=== PATIENT | male | born 1970 | race Caucasian/White ===

== ENCOUNTER 2016-12-04 17:30 | Emergency (ER) | payer SELFPAY ==
[~2016-12-04] VITALS: Ht 172.7 cm; Wt 100.0 kg
[2016-12-04 18:22] LABS: HEMATOCRIT 55.7 % (39.0-50.0); HEMOGLOBIN 18.2 g/dl (14.0-18.0); IMMATURE GRANULOCYTES 2.8 % (0.0-1.0); MEAN CELL VOLUME 85.7 fL CALC (80.0-100.0); MEAN CORPUSCULAR HGB CONC 32.7 g/L CALC (32.0-36.0); NEUT# 24.61 thou/uL (1.82-7.42); RED BLOOD COUNT 6.5 mill/uL (4.70-6.10); RED CELL DISTRI WIDTH 20.1 % (11.5-15.5)
[2016-12-04 18:33] LABS: ALBUMIN 4.5 g/dL (3.2-5.0); ALKALINE PHOSPHATASE 93 u/l (38-126); ANION GAP 13 (6-22 (CALC)); BILIRUBIN, TOTAL 0.9 mg/dL (0.0-1.4); BUN 28 mg/dL (9-20); BUN/CREATININE RATIO 31 (12-20 (CALC)); CALCIUM 9.7 mg/dL (8.4-10.2); CARBON DIOXIDE 37 mmol/l (22-30); CHLORIDE 94 mmol/l (95-108); CREATININE 0.9 mg/dL (0.7-1.3); GFR > 60 ML/MIN (>=60 (CALC)); GFR FOR AFR.AMER. > 60 ML/MIN (>=60 (CALC)); GLUCOSE 109 mg/dL (75-110); POTASSIUM 3.6 mmol/l (3.5-5.1); SGOT/AST 49 u/l (17-59); SGPT/ALT 45 u/l (21-72); SODIUM 140 mmol/l (137-146); TOTAL PROTEIN 8.1 g/dL (6.3-8.2)
[2016-12-04 18:45] LABS: MYOGLOBIN 65 ng/mL (0 - 121)
[2016-12-04] MEDS ORDERED: VENTOLIN H108 MCG/AC IN (19:16)
[2016-12-04] MEDS ORDERED: DIGOX250 MCG PO (19:18)
[2016-12-04] MEDS ORDERED: GABAPENTIN400 M2 PO (19:18)
[2016-12-04] MEDS ORDERED: DILTIAZEM HCL300 MG PO (19:19)
[2016-12-04] MEDS ORDERED: CARVEDILOL12.5 MG PO (19:19)
[2016-12-04] MEDS ORDERED: XARELTO20 MG PO (19:20)
[2016-12-04] MEDS ORDERED: PANTOPRAZOLE SO40 M1 PO (19:20)
[2016-12-04] MEDS ORDERED: ALDACTAZIDE 25/25 PO (19:21)
[2016-12-04] MEDS ORDERED: LISINOPRIL40 MG PO (19:21)
[2016-12-04 21:58] LABS: URINE BILIRUBIN - DIPSTICK NEGATIVE (NEGATIVE); URINE BLOOD DIPSTICK TRACE-INTACT (NEGATIVE); URINE CLARITY CLEAR; URINE COLOR YELLOW; URINE GLUCOSE - DIPSTICK NEGATIVE (NEGATIVE); URINE KETONE NEGATIVE (NEGATIVE); URINE LEUK ESTERASE NEGATIVE (NEGATIVE); URINE NITRITE - DIPSTICK NEGATIVE (Negative); URINE PROTEIN - DIPSTICK NEGATIVE (NEG-TRACE); URINE SPECIFIC GRAVITY 1.025; URINE UROBILINOGEN - DIPSTICK 0.2 E.U./dL (0.2)
[2016-12-04] MEDS ORDERED: PERCOCET 5/325M1 TAB PO (23:23)
[2016-12-04] MEDS ORDERED: XANAX0.5 MG PO (23:23)
[2016-12-04 23:58] VITALS: BP 133/85
== END 2016-12-04 23:35 | disposition home or self-care (01) | DRG 313 ==
LOC: ED 17:30
PROVIDERS: Emergency Medicine
DX: R07.89 Other chest pain (principal); I10 Essential (primary) hypertension; G89.29 Other chronic pain; M54.9 Dorsalgia, unspecified; F41.9 Anxiety disorder, unspecified; R10.31 Right lower quadrant pain; F17.200 Nicotine dependence, unspecified, uncomplicated; J44.9 Chronic obstructive pulmonary disease, unspecified

== ENCOUNTER 2016-12-10 04:49 | Inpatient (IN) | payer SELFPAY ==
[~2016-12-10] VITALS: Ht 172.7 cm; Wt 123.0 kg
[~2016-12-10 04:49] MED LIST: ALDACTAZIDE 25/25 PO; CARVEDILOL12.5 MG PO; DIGOX250 MCG PO; DILTIAZEM HCL300 MG PO; GABAPENTIN400 M2 PO; LISINOPRIL40 MG PO; PANTOPRAZOLE SO40 M1 PO; PERCOCET 5/325M1 TAB PO; VENTOLIN H108 MCG/AC IN; XANAX0.5 MG PO; XARELTO20 MG PO
[2016-12-10 05:22] LABS: ALBUMIN 3.6 g/dL (3.2-5.0); ALKALINE PHOSPHATASE 80 u/l (38-126); ANION GAP 12 (6-22 (CALC)); BILIRUBIN, TOTAL 0.9 mg/dL (0.0-1.4); BUN 16 mg/dL (9-20); BUN/CREATININE RATIO 21 (12-20 (CALC)); CALCIUM 8.9 mg/dL (8.4-10.2); CARBON DIOXIDE 28 mmol/l (22-30); CHLORIDE 105 mmol/l (95-108); CREATININE 0.7 mg/dL (0.7-1.3); GFR > 60 ML/MIN (>=60 (CALC)); GFR FOR AFR.AMER. > 60 ML/MIN (>=60 (CALC)); GLUCOSE 106 mg/dL (75-110); POTASSIUM 4.2 mmol/l (3.5-5.1); SGOT/AST 26 u/l (17-59); SGPT/ALT 33 u/l (21-72); SODIUM 141 mmol/l (137-146); TOTAL PROTEIN 6.4 g/dL (6.3-8.2)
[2016-12-10 05:25] LABS: HEMATOCRIT 42.1 % (39.0-50.0); HEMOGLOBIN 13.7 g/dl (14.0-18.0); IMMATURE GRANULOCYTES 0.9 % (0.0-1.0); MEAN CELL VOLUME 88.1 fL CALC (80.0-100.0); MEAN CORPUSCULAR HGB 28.7 pG CALC (26.0-32.0); MEAN CORPUSCULAR HGB CONC 32.5 g/L CALC (32.0-36.0); NEUT# 18.76 thou/uL (1.82-7.42); RED BLOOD COUNT 4.78 mill/uL (4.70-6.10); RED CELL DISTRI WIDTH 19.9 % (11.5-15.5)
[2016-12-10 05:26] LABS: ACT PARTIAL THROMBO TIME 33.4 SECONDS (20.0-32.5); INTERNATIONAL NORMALIZED RATIO 1.1 RATIO (0.7-1.3)
[2016-12-10 05:35] LABS: DIGOXIN 0.7 ng/mL (0.8-2.0); MYOGLOBIN 33 ng/mL (0 - 121)
[2016-12-10 06:26] LABS: URINE BILIRUBIN - DIPSTICK NEGATIVE (NEGATIVE); URINE BLOOD DIPSTICK NEGATIVE (NEGATIVE); URINE CLARITY CLEAR; URINE COLOR YELLOW; URINE GLUCOSE - DIPSTICK NEGATIVE (NEGATIVE); URINE KETONE NEGATIVE (NEGATIVE); URINE LEUK ESTERASE NEGATIVE (NEGATIVE); URINE NITRITE - DIPSTICK NEGATIVE (Negative); URINE PH 6.5 (4.5-8.0); URINE PROTEIN - DIPSTICK NEGATIVE (NEG-TRACE); URINE UROBILINOGEN - DIPSTICK 0.2 E.U./dL (0.2)
[2016-12-10 06:32] LABS: BARBITURATES NEGATIVE (NEGATIVE); COCAINE NEGATIVE (NEGATIVE); METHADONE NEGATIVE (NEGATIVE); OXCYCODONE NEGATIVE (NEGATIVE); TETRAHYDROCANNABIONOL NEGATIVE (NEGATIVE); TRICYLIC ANTIDEPRESSANTS NEGATIVE (NEGATIVE)
[2016-12-10 07:42] VITALS: BP 165/105
[2016-12-10 09:37] VITALS: BP 138/88
[2016-12-10] MEDS ORDERED: XANAX0.5 MG PO ×2 (11:35→11:36)
[2016-12-10] MEDS ORDERED: PERCOCET 5/325M1 TAB PO ×2 (11:35→11:37)
[2016-12-10] MEDS ORDERED: OMEPRAZOLE20 M2 PO (11:38)
[2016-12-10] MEDS ORDERED: CARVEDILOL25 MG PO (11:39)
[2016-12-10] MEDS ORDERED: AMLODIPINE5 MG PO (11:41)
[2016-12-10] MEDS ORDERED: LIPITOR40 M1 PO (11:42)
[2016-12-10] MEDS ORDERED: ASPIRIN81 MG PO (11:42)
[2016-12-10] MEDS ORDERED: DOCU SOFT100 MG PO (11:43)
[2016-12-10] MEDS ORDERED: CHLORTHALIDONE25 MG PO (11:43)
[2016-12-10] MEDS ORDERED: LORAZEPAM0.5 MG PO (11:44)
[2016-12-10] MEDS ORDERED: FERROUS SULF325 M2 PO (11:44)
[2016-12-10] MEDS ORDERED: REMERON15 MG PO (11:45)
[2016-12-10] MEDS ORDERED: MELOXICAM7.5 MG PO (11:45)
[2016-12-10] MEDS ORDERED: DULERA1 AE1 IN (11:46)
[2016-12-10 12:00] VITALS: BP 132/81
[2016-12-10 16:46] VITALS: BP 117/67
[2016-12-10 18:00] VITALS: BP 129/87
[2016-12-10 23:58] VITALS: BP 142/91
[2016-12-11 05:55] LABS: HEMATOCRIT 42.2 % (39.0-50.0); HEMOGLOBIN 13.4 g/dl (14.0-18.0); MEAN CELL VOLUME 88.3 fL CALC (80.0-100.0); MEAN CORPUSCULAR HGB CONC 31.8 g/L CALC (32.0-36.0); RED BLOOD COUNT 4.78 mill/uL (4.70-6.10); RED CELL DISTRI WIDTH 19.8 % (11.5-15.5)
[2016-12-11 06:14] LABS: ANION GAP 11 (6-22 (CALC)); BUN 15 mg/dL (9-20); BUN/CREATININE RATIO 19 (12-20 (CALC)); CALCIUM 8.7 mg/dL (8.4-10.2); CARBON DIOXIDE 27 mmol/l (22-30); CHLORIDE 106 mmol/l (95-108); CREATININE 0.8 mg/dL (0.7-1.3); GFR > 60 ML/MIN (>=60 (CALC)); GFR FOR AFR.AMER. > 60 ML/MIN (>=60 (CALC)); GLUCOSE 94 mg/dL (75-110); POTASSIUM 4.4 mmol/l (3.5-5.1); SODIUM 139 mmol/l (137-146)
[2016-12-11 06:22] VITALS: BP 134/85
[2016-12-11 07:50] VITALS: BP 146/100
[2016-12-11 08:23] LABS: CHOLESTEROL HDL RATIO 4.2 (<4.4 (CALC))
[2016-12-11 11:27] VITALS: BP 127/89
[2016-12-11] MEDS ORDERED: IPRATROPIU0.5 MG/3 M IN (13:58)
[2016-12-11] MEDS ORDERED: DOXYCYCL HYC100 MG PO (13:58)
[2016-12-11] MEDS ORDERED: BACLOFEN10 MG PO (13:58)
[2016-12-11] MEDS ORDERED: KEFLEX500 MG PO (13:58)
[2016-12-11] MEDS ORDERED: FLORASTOR250 M1 PO (14:01)
== END 2016-12-11 15:43 | disposition home or self-care (01) | DRG 190 ==
LOC: ED 04:49 → ED-I 05:56 → ED 05:56 → MS2 06:04
PROVIDERS: Emergency Medicine; Nurse Practitioner Family; ADMIT Internal Medicine; ATTEND Internal Medicine
DX: J44.0 Chronic obstructive pulmonary disease with (acute) lower respiratory infection (principal); J18.9 Pneumonia, unspecified organism; I11.0 Hypertensive heart disease with heart failure; I50.32 Chronic diastolic (congestive) heart failure; G89.4 Chronic pain syndrome; I25.10 Atherosclerotic heart disease of native coronary artery without angina pectoris; E78.5 Hyperlipidemia, unspecified; K21.9 Gastro-esophageal reflux disease without esophagitis; F15.11 Other stimulant abuse, in remission; Z79.01 Long term (current) use of anticoagulants; Z87.891 Personal history of nicotine dependence

== ENCOUNTER 2016-12-12 19:37 | Emergency (ER) | payer SELFPAY ==
[~2016-12-12] VITALS: Ht 172.7 cm; Wt 122.8 kg
[~2016-12-12 19:37] MED LIST changes: +AMLODIPINE5 MG PO; +ASPIRIN81 MG PO; +BACLOFEN10 MG PO; +CARVEDILOL25 MG PO; +CHLORTHALIDONE25 MG PO; +DOCU SOFT100 MG PO; +DOXYCYCL HYC100 MG PO; +DULERA1 AE1 IN; +FERROUS SULF325 M2 PO; +FLORASTOR250 M1 PO; +IPRATROPIU0.5 MG/3 M IN; +KEFLEX500 MG PO; +LIPITOR40 M1 PO; +LORAZEPAM0.5 MG PO; +MELOXICAM7.5 MG PO; +OMEPRAZOLE20 M2 PO; +REMERON15 MG PO
[2016-12-12 21:43] LABS: IMMATURE GRANULOCYTES 0.7 % (0.0-1.0); MEAN CELL VOLUME 87.3 fL CALC (80.0-100.0); MEAN CORPUSCULAR HGB 28.5 pG CALC (26.0-32.0); MEAN CORPUSCULAR HGB CONC 32.6 g/L CALC (32.0-36.0); NEUT# 15.06 thou/uL (1.82-7.42); RED BLOOD COUNT 5.27 mill/uL (4.70-6.10); RED CELL DISTRI WIDTH 19.7 % (11.5-15.5)
[2016-12-12 21:53] LABS: ALKALINE PHOSPHATASE 92 u/l (38-126); ANION GAP 15 (6-22 (CALC)); BUN 14 mg/dL (9-20); BUN/CREATININE RATIO 20 (12-20 (CALC)); CALCIUM 9.7 mg/dL (8.4-10.2); CARBON DIOXIDE 25 mmol/l (22-30); CHLORIDE 107 mmol/l (95-108); CREATININE 0.7 mg/dL (0.7-1.3); GFR > 60 ML/MIN (>=60 (CALC)); GFR FOR AFR.AMER. > 60 ML/MIN (>=60 (CALC)); GLUCOSE 85 mg/dL (75-110); POTASSIUM 4.8 mmol/l (3.5-5.1); SGOT/AST 27 u/l (17-59); SGPT/ALT 29 u/l (21-72); SODIUM 143 mmol/l (137-146); TOTAL PROTEIN 7.1 g/dL (6.3-8.2)
[2016-12-12 22:00] LABS: ACT PARTIAL THROMBO TIME 25.9 SECONDS (20.0-32.5); INTERNATIONAL NORMALIZED RATIO 1.1 RATIO (0.7-1.3)
[2016-12-12 22:06] LABS: MYOGLOBIN 30 ng/mL (0 - 121)
[2016-12-12 22:52] LABS: URINE BILIRUBIN - DIPSTICK NEGATIVE (NEGATIVE); URINE BLOOD DIPSTICK NEGATIVE (NEGATIVE); URINE COLOR YELLOW; URINE GLUCOSE - DIPSTICK NEGATIVE (NEGATIVE); URINE KETONE NEGATIVE (NEGATIVE); URINE LEUK ESTERASE NEGATIVE (NEGATIVE); URINE NITRITE - DIPSTICK NEGATIVE (Negative); URINE PROTEIN - DIPSTICK NEGATIVE (NEG-TRACE); URINE SPECIFIC GRAVITY 1.015; URINE UROBILINOGEN - DIPSTICK 0.2 E.U./dL (0.2)
[2016-12-12 22:54] LABS: URINE CLARITY CLEAR
[2016-12-13 01:08] VITALS: BP 190/107
== END 2016-12-13 01:20 | disposition short-term general hospital (02) | DRG 194 ==
LOC: ED 19:37
PROVIDERS: Emergency Medicine
DX: J18.9 Pneumonia, unspecified organism (principal); J91.8 Pleural effusion in other conditions classified elsewhere; I50.9 Heart failure, unspecified; I48.91 Unspecified atrial fibrillation; R07.9 Chest pain, unspecified; I10 Essential (primary) hypertension; R06.02 Shortness of breath
CPT/HCPCS: Q9967

== ENCOUNTER 2016-12-29 17:06 | Emergency (ER) | payer MEDICAID ==
[~2016-12-29] VITALS: Ht 172.7 cm; Wt 98.6 kg
[2016-12-29] MEDS ORDERED: VENTOLIN H108 MCG/AC (17:45)
[2016-12-29] MEDS ORDERED: ALBUTEROL SUL0.083 % IN (17:45)
[2016-12-29] MEDS ORDERED: GABAPENTIN400 M2 PO (17:46)
[2016-12-29] MEDS ORDERED: DIGOX250 MCG (17:47)
[2016-12-29 17:56] LABS: HEMOGLOBIN 17.6 g/dl (14.0-18.0); IMMATURE GRANULOCYTES 1.4 % (0.0-1.0); MEAN CORPUSCULAR HGB 28.6 pG CALC (26.0-32.0); MEAN CORPUSCULAR HGB CONC 33.2 g/L CALC (32.0-36.0); NEUT# 17.88 thou/uL (1.82-7.42); RED BLOOD COUNT 6.16 mill/uL (4.70-6.10); RED CELL DISTRI WIDTH 19.7 % (11.5-15.5)
[2016-12-29 18:25] LABS: ANION GAP 17 (6-22 (CALC)); BUN 26 mg/dL (9-20); BUN/CREATININE RATIO 23 (12-20 (CALC)); CALCIUM 10.4 mg/dL (8.4-10.2); CARBON DIOXIDE 28 mmol/l (22-30); CHLORIDE 99 mmol/l (95-108); CREATININE 1.1 mg/dL (0.7-1.3); GFR > 60 ML/MIN (>=60 (CALC)); GFR FOR AFR.AMER. > 60 ML/MIN (>=60 (CALC)); GLUCOSE 109 mg/dL (75-110); POTASSIUM 5.1 mmol/l (3.5-5.1); SODIUM 139 mmol/l (137-146)
[2016-12-29 18:49] LABS: ALKALINE PHOSPHATASE 114 u/l (38-126); BILIRUBIN, TOTAL 1.1 mg/dL (0.0-1.4); DIGOXIN 0.8 ng/mL (0.8-2.0); SGOT/AST 60 u/l (17-59); SGPT/ALT 26 u/l (21-72); TOTAL PROTEIN 8.9 g/dL (6.3-8.2)
[2016-12-29 22:13] VITALS: BP 142/74
== END 2016-12-29 22:17 | disposition short-term general hospital (02) | DRG 313 ==
LOC: ED 17:06 → ED-I 17:48 → ED 22:17
PROVIDERS: Family Medicine
DX: R07.9 Chest pain, unspecified (principal); I50.9 Heart failure, unspecified; I48.91 Unspecified atrial fibrillation; R05 Cough; Z92.241 Personal history of systemic steroid therapy; I10 Essential (primary) hypertension; J44.9 Chronic obstructive pulmonary disease, unspecified; M79.602 Pain in left arm; M54.2 Cervicalgia

== ENCOUNTER 2017-03-20 19:20 | Observation (INO) | payer OTHER ==
[~2017-03-20] VITALS: Ht 172.7 cm; Wt 121.2 kg
[~2017-03-20 19:20] MED LIST changes: +ALBUTEROL SUL0.083 % IN; +DIGOX250 MCG; +VENTOLIN H108 MCG/AC
[2017-03-20] MEDS ORDERED: DIGOXIN0.125 MG PO (19:41)
[2017-03-20] MEDS ORDERED: PROTONIX40 M2 PO (19:42)
[2017-03-20] MEDS ORDERED: CARTIA XT300 MG PO (19:42)
[2017-03-20] MEDS ORDERED: SPIRONO/HCTZ PO (19:43)
[2017-03-20] MEDS ORDERED: COREG6.25 MG PO (19:44)
[2017-03-20] MEDS ORDERED: ALBUTEROL SUL0.083 % IN (19:44)
[2017-03-20] MEDS ORDERED: PROAIR HFA108 MCG/AC IN (19:45)
[2017-03-20] MEDS ORDERED: SUBOXONE1 MI1 SL (19:45)
--- NOTE | 2017-03-20 19:52 | NUR ---
AFTER PREVIOUSLY TELLING TRIAGE NURSE THAT HE TOOK ALL HIS MEDS TODAY, NOW STATES THAT HE HAS NOT TAKEN HIS SUBOXONE FOR 3 DAYS.
[2017-03-20 20:12] LABS: HEMATOCRIT 50.2 % (39.0-50.0); HEMOGLOBIN 16.3 g/dl (14.0-18.0); IMMATURE GRANULOCYTES 0.8 % (0.0-1.0); MEAN CELL VOLUME 86.7 fL CALC (80.0-100.0); MEAN CORPUSCULAR HGB 28.2 pG CALC (26.0-32.0); MEAN CORPUSCULAR HGB CONC 32.5 g/L CALC (32.0-36.0); NEUT# 16.07 thou/uL (1.82-7.42); RED BLOOD COUNT 5.79 mill/uL (4.70-6.10); RED CELL DISTRI WIDTH 19.3 % (11.5-15.5)
[2017-03-20 20:31] LABS: ACT PARTIAL THROMBO TIME 27.6 SECONDS (20.0-32.5); PROTHROMBIN TIME 11.1 SECONDS (9.0-12.5)
[2017-03-20 20:34] LABS: ALBUMIN 4.6 g/dL (3.2-5.0); ALKALINE PHOSPHATASE 105 u/l (38-126); ANION GAP 18 (6-22 (CALC)); BILIRUBIN, TOTAL 0.5 mg/dL (0.0-1.4); BUN 22 mg/dL (9-20); BUN/CREATININE RATIO 21 (12-20 (CALC)); CARBON DIOXIDE 23 mmol/l (22-30); CHLORIDE 105 mmol/l (95-108); CREATININE 1.1 mg/dL (0.7-1.3); GFR > 60 ML/MIN (>=60 (CALC)); GFR FOR AFR.AMER. > 60 ML/MIN (>=60 (CALC)); POTASSIUM 4.4 mmol/l (3.5-5.1); SGOT/AST 46 u/l (17-59); SGPT/ALT 67 u/l (21-72); SODIUM 142 mmol/l (137-146); TOTAL PROTEIN 7.8 g/dL (6.3-8.2)
[2017-03-20 20:45] LABS: MYOGLOBIN 32 ng/mL (0 - 121)
--- NOTE | 2017-03-20 20:49 | NUR ---
C/O CHEST PAIN 10/15. ADVISED.
[2017-03-20 20:57] LABS: INFLUENZA A NONE DETECTED (NONE DETECT); INFLUENZA B NONE DETECTED (NONE DETECT)
--- NOTE | 2017-03-20 21:38 | NUR ---
RESTING QUIETLY AT THIS TIME.
[2017-03-20 22:20] LABS: URINE BILIRUBIN - DIPSTICK NEGATIVE (NEGATIVE); URINE BLOOD DIPSTICK NEGATIVE (NEGATIVE); URINE COLOR YELLOW; URINE GLUCOSE - DIPSTICK NEGATIVE (NEGATIVE); URINE KETONE NEGATIVE (NEGATIVE); URINE LEUK ESTERASE NEGATIVE (NEGATIVE); URINE NITRITE - DIPSTICK NEGATIVE (Negative); URINE PROTEIN - DIPSTICK NEGATIVE (NEG-TRACE); URINE SPECIFIC GRAVITY >=1.030; URINE UROBILINOGEN - DIPSTICK 0.2 E.U./dL (0.2)
[2017-03-20 22:22] LABS: URINE CLARITY CLEAR
[2017-03-20 22:23] LABS: BARBITURATES NEGATIVE (NEGATIVE); COCAINE NEGATIVE (NEGATIVE); METHADONE NEGATIVE (NEGATIVE); OXCYCODONE NEGATIVE (NEGATIVE); TETRAHYDROCANNABIONOL NEGATIVE (NEGATIVE); TRICYLIC ANTIDEPRESSANTS NEGATIVE (NEGATIVE)
--- NOTE | 2017-03-20 22:28 | NUR ---
Admission Note Report Given to: MERCED WATT Transported by: Wheelchair X Stretcher Transported with: X Nurse Transporter X Patent IV O2 Joint Machine Operator
--- NOTE | 2017-03-20 22:45 | NUR ---
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
[2017-03-20 22:57] VITALS: BP 186/97
--- NOTE | 2017-03-20 23:50 | NUR ---
CLONIDINE 0.1MG PO GIVEN FOR ELEVATED BP 186/97 AND PRN TORADOL 15MG IVP GIVEN FOR MID STERNAL CHEST PAIN RATING 9/10 ON THE PAIN SCALE;WILL MONTIOR FOR EFFECTIVENESS
--- NOTE | 2017-03-21 00:40 | NUR ---
BP RE-CHECK 141/79 HR 82;PT SOUND ASLEEP UPON ENTERING THE ROOM,WAKENS TO VERBAL STIMULI;PT REPORTS PAIN LEVEL TO CHEST 8/10 ON THE PAIN SCALE BUT DENIES ANY OTHER NEEDS AT THIS TIME;WILL CONTINUE TO MONITOR
[2017-03-21 04:26] VITALS: BP 128/80
--- NOTE | 2017-03-21 06:00 | NUR ---
PT APPEARS TO BE RESTING IN SUPINE POSITION;LAB AT BEDSIDE;TELE MONITOR IN PLACE;RESPIRATIONS EVEN AND UNLABORED;WILL CONTINUE TO MONITOR
[2017-03-21 06:58] LABS: HEMATOCRIT 48.4 % (39.0-50.0); HEMOGLOBIN 15.5 g/dl (14.0-18.0); IMMATURE GRANULOCYTES 0.9 % (0.0-1.0); MEAN CELL VOLUME 86.4 fL CALC (80.0-100.0); MEAN CORPUSCULAR HGB 27.7 pG CALC (26.0-32.0); NEUT# 12.51 thou/uL (1.82-7.42); RED BLOOD COUNT 5.6 mill/uL (4.70-6.10); RED CELL DISTRI WIDTH 19.2 % (11.5-15.5)
--- NOTE | 2017-03-21 07:15 | NUR ---
REPORT RECEVIED FROM QUINTIN WATT. PT SUPINE IN BED. SLEEPING. CALL LIGHT WITHIN REACH.
[2017-03-21 07:18] LABS: ANION GAP 16 (6-22 (CALC)); BUN 25 mg/dL (9-20); BUN/CREATININE RATIO 27 (12-20 (CALC)); CALCULATED LDLCHOLESTEROL 88 mg/dL (62-129 (CALC)); CARBON DIOXIDE 25 mmol/l (22-30); CHLORIDE 104 mmol/l (95-108); CHOLESTEROL HDL RATIO 3.5 (<4.4 (CALC)); CREATININE 0.9 mg/dL (0.7-1.3); GFR > 60 ML/MIN (>=60 (CALC)); GFR FOR AFR.AMER. > 60 ML/MIN (>=60 (CALC)); HDL CHOLESTEROL 43 mg/dL (>=40); MAGNESIUM 1.9 mg/dL (1.6-2.3); POTASSIUM 4.3 mmol/l (3.5-5.1); SODIUM 141 mmol/l (137-146); TOTAL CHOLESTEROL 148 mg/dl (0-199); TOTAL TRIGLYCERIDES 88 mg/dl (30-149); VLDL CHOLESTROL 18 mg/dl (5-56 (CALC))
--- NOTE | 2017-03-21 10:30 | NUR ---
PT AWAKENED. REPORTS MODERATE MIDSTERNAL, SHARP PAIN. VILMA AGUILERA NOTIFIED. GI COCKTAIL AND PROTONIX ORDERED.
[2017-03-21 10:55] VITALS: BP 145/80
--- NOTE | 2017-03-21 12:37 | NUR ---
PT REPORTS NO RELIEF FROM GI COCKTAIL AND PROTONIX PO. TORADOL IV ADMINSITERED. WILL CONTINUE TO MONITOR.
[2017-03-21 13:04] VITALS: BP 145/80
[2017-03-21] MEDS ORDERED: CARAFATE1 GM/10 ML PO (13:07)
--- NOTE | 2017-03-21 14:07 | NUR ---
DR. SOUZA IN TO SEE PT. DISCHARGE HOME DISCUSSED. AWAITING DOSE OF CARAFTE FROM PHARMACY BEFORE DISCHARGE.
--- NOTE | 2017-03-21 15:13 | NUR ---
Discharge instructions given. Patient verbalizes understanding of same. Discharged in stable condition via Ambulatory to Home with *Other. All belongings sent with pt.
== END 2017-03-21 15:00 | disposition home or self-care (01) | DRG 313 ==
LOC: ED 19:20 → ED-I 21:20 → ED 21:52 → MS2 21:53
PROVIDERS: Emergency Medicine; Nurse Practitioner Family; ADMIT Internal Medicine; ATTEND Internal Medicine
DX: R07.89 Other chest pain (principal); I11.0 Hypertensive heart disease with heart failure; I50.30 Unspecified diastolic (congestive) heart failure; D72.829 Elevated white blood cell count, unspecified; E78.5 Hyperlipidemia, unspecified; J44.9 Chronic obstructive pulmonary disease, unspecified; K21.9 Gastro-esophageal reflux disease without esophagitis; Z87.01 Personal history of pneumonia (recurrent); Z87.891 Personal history of nicotine dependence
CPT/HCPCS: G0378

== ENCOUNTER 2017-05-14 15:41 | Emergency (ER) | payer OTHER ==
[~2017-05-14] VITALS: Ht 172.7 cm; Wt 118.0 kg
[~2017-05-14 15:41] MED LIST changes: +CARAFATE1 GM/10 ML PO; +CARTIA XT300 MG PO; +COREG6.25 MG PO; +DIGOXIN0.125 MG PO; +PROAIR HFA108 MCG/AC IN; +PROTONIX40 M2 PO; +SPIRONO/HCTZ PO; +SUBOXONE1 MI1 SL
[2017-05-14] MEDS ORDERED: ALBUTEROL SUL0.083 % IN (16:41)
[2017-05-14 16:44] VITALS: BP 157/84
== END 2017-05-14 17:35 | disposition home or self-care (01) | DRG 951 ==
LOC: ED 15:41
DX: Z76.0 Encounter for issue of repeat prescription (principal); J44.1 Chronic obstructive pulmonary disease with (acute) exacerbation; I11.9 Hypertensive heart disease without heart failure; F32.9 Major depressive disorder, single episode, unspecified; M19.90 Unspecified osteoarthritis, unspecified site; Z85.9 Personal history of malignant neoplasm, unspecified

== ENCOUNTER 2017-09-26 11:13 | Observation (INO) | payer OTHER ==
[~2017-09-26] VITALS: Ht 172.7 cm; Wt 126.0 kg
--- NOTE | 2017-09-26 11:20 | NUR ---
PT STATES SHORTNESS OF BREATH FOR 1 WEEK, STATES SWELLING IN LEGS HAS INCREASED. PT STATES C/P WITH SOB. PT IS AOX4.
[2017-09-26] MEDS ORDERED: ADLT ASA LOW81 MG PO (11:31)
[2017-09-26] MEDS ORDERED: NEURONTIN400 MG PO (11:32)
[2017-09-26] MEDS ORDERED: DULERA1 AE1 IN (11:33)
[2017-09-26 12:05] LABS: HEMATOCRIT 43.5 % (39.0-50.0); IMMATURE GRANULOCYTES 0.7 % (0.0-5.0); MEAN CORPUSCULAR HGB 28.6 pG CALC (26.0-32.0); MEAN CORPUSCULAR HGB CONC 32.2 g/L CALC (32.0-36.0); RED BLOOD COUNT 4.89 mill/uL (4.70-6.10); RED CELL DISTRI WIDTH 18.8 % (11.5-15.5)
[2017-09-26 12:10] LABS: ALBUMIN 3.9 g/dL (3.2-5.0); ALKALINE PHOSPHATASE 89 u/l (38-126); ANION GAP 14 (6-22 (CALC)); BILIRUBIN, TOTAL 0.6 mg/dL (0.0-1.4); BUN 17 mg/dL (9-20); BUN/CREATININE RATIO 23 (12-20 (CALC)); CARBON DIOXIDE 27 mmol/l (22-30); CHLORIDE 103 mmol/l (95-108); CREATININE 0.7 mg/dL (0.7-1.3); GFR > 60 ML/MIN (>=60 (CALC)); GFR FOR AFR.AMER. > 60 ML/MIN (>=60 (CALC)); POTASSIUM 4.2 mmol/l (3.5-5.1); SGOT/AST 35 u/l (17-59); SGPT/ALT 42 u/l (21-72); SODIUM 140 mmol/l (137-146)
--- NOTE | 2017-09-26 12:20 | NUR ---
PT RESTING ON STRETCHER, URINALS AT BEDSIDE. STATES PAIN IS ABOUT THE SAME
[2017-09-26 12:22] LABS: MYOGLOBIN 62 ng/mL (0 - 121)
--- NOTE | 2017-09-26 12:40 | NUR ---
EMPTIED URINALS OF 1500CC CLEAR YELLOW URINE AT THIS TIME.
[2017-09-26 13:03] LABS: URINE BILIRUBIN - DIPSTICK NEGATIVE (NEGATIVE); URINE BLOOD DIPSTICK NEGATIVE (NEGATIVE); URINE COLOR YELLOW; URINE GLUCOSE - DIPSTICK NEGATIVE (NEGATIVE); URINE KETONE NEGATIVE (NEGATIVE); URINE LEUK ESTERASE NEGATIVE (NEGATIVE); URINE NITRITE - DIPSTICK NEGATIVE (Negative); URINE PH 6.5 (4.5-8.0); URINE PROTEIN - DIPSTICK NEGATIVE (NEG-TRACE); URINE SPECIFIC GRAVITY <=1.005; URINE UROBILINOGEN - DIPSTICK 0.2 E.U./dL (0.2)
[2017-09-26 13:04] LABS: URINE CLARITY CLEAR
[2017-09-26 13:06] LABS: BARBITURATES NEGATIVE (NEGATIVE); COCAINE NEGATIVE (NEGATIVE); METHADONE NEGATIVE (NEGATIVE); OXCYCODONE NEGATIVE (NEGATIVE); TETRAHYDROCANNABIONOL NEGATIVE (NEGATIVE); TRICYLIC ANTIDEPRESSANTS NEGATIVE (NEGATIVE)
--- NOTE | 2017-09-26 13:41 | NUR ---
DUMPED URINE OF 1500CC CLEAR YELLOW URINE
--- NOTE | 2017-09-26 14:30 | NUR ---
PT GIVEN WATER AND SNACKS. PT RESTING ON STRETCHER, NO COMPLAINTS AT THIS TIME.
--- NOTE | 2017-09-26 14:44 | NUR ---
REPORT CALLED TO SHUKRI RIBEIRO- ACCEPTED PT
--- NOTE | 2017-09-26 14:50 | NUR ---
500 ML OF URINE EMPTIED
--- NOTE | 2017-09-26 15:02 | NUR ---
PT ARRIVED TO FLOOR VIA STRETCHER ACCOMPANIED BY MERCED LEON;PT AMBULATED TO STANDING SCALE AND BEDSIDE WITH STEADY GAIT;ALERT AND ORIENTED X4;PT ORIENTED TO ROOM AND CALL LIGHT SYSTEM AND VERBALIZES UNDERSTANDING;PT REPORTS SOB X7 DAYS PRIOR TO ARRIVAL;ASSESSMENT COMPLETED;RESPIRATIONS EVEN AND UNLABORED ON RA,DIMINISHED LUNGS SOUNDS THROUGHOUT WITH OCCASIONAL WHEEZING;PT REPORTS PRODUCTIVE COUGH GREEN/THICK AND MODERATE,NONE VISUALIZED BY WRITTER;ABDOMEN DISTENDED/SOFT ON PALPATION AND ACTIVE IN ALL 4 QUADRANTS,LAST BM 09/26/17;DOPPLERED PEDAL PULSES, +4 PITTING EDEMA NOTED TO BLE;BLE ELEVATED ON X2 PILLOWS;TELE MONITOR IN PLACE;#20G TO RAC FLUSHED AND PATENT,SITE APPEARS HEALTHY;PT DENIES ANY CURRENT PAIN,PAIN SCALE AND REPORTING EDUCATED; SAFETY PRECAUTIONS REINFORCED WITH BED IN THE LOWEST POSITION;CALL LIGHT IN REACH;WILL CONTINUE TO MONITOR
--- NOTE | 2017-09-26 15:14 | NUR ---
Admission Note Report Given to: SHUKRI RIBEIRO Transported by: Wheelchair X Stretcher Transported with: X Nurse Transporter X Patent IV O2 X Washing And Screening Plant Supervisor TRANSPORTED [place] [facility] [place]
[2017-09-26 16:00] VITALS: BP 170/120
[2017-09-26 16:20] VITALS: BP 170/120
[2017-09-26] MEDS ORDERED: PROTONIX20 M1 PO (16:38)
--- NOTE | 2017-09-26 17:25 | NUR ---
PT MEDICATED WITH LISINOPRIL 10MG PO AND NORVASC 5MG PO FOR A BP OF 175/103 PER ,WILL CONTINUE TO MONITOR FOR EFFECTIVENESS
[2017-09-26 18:16] VITALS: BP 172/93
--- NOTE | 2017-09-26 19:37 | NUR ---
PT IS IN BED W/LIGHTS AND TV ON ATTEMPTING TO MAKE A PHONE CALL. PT ASSISTED. HE ASKED TO PLEASE BE TAKEN OFF THE DO NOT DISTURB LIST AND ALLOW CALLS AND VISITORS AT THIS TIME. RECEIVING/PV DESIGN ENGINEER NOTIFIED. DENIES ANY OTHER NEEDS AT THIS TIME. CALL LIGHT W/IN REACH.
[2017-09-26 21:15] VITALS: BP 172/100
--- NOTE | 2017-09-26 22:48 | NUR ---
PT MEDICATED AT THIS TIME AND POC DISCUSSED. PT IS REQUESTING A THIRD ICECREAM. DENIES ANY OTHER NEEDS AT THIS TIME. CALL LIGHT W/IN REACH.
[2017-09-27 00:50] VITALS: BP 128/76
--- NOTE | 2017-09-27 02:12 | NUR ---
PT IS SLEEPING AT THIS TIME, AROUSED SLIGHTLY UPON MY ENTERING ROOM, BUT RETURNED RIGHT BACK TO SLEEP. WILL CONTINUE TO MONITOR. TV ON LOW, LIGHTS OUT, BED IN LOWEST POSITION AND CALL LIGHT AT SIDE.
[2017-09-27 04:55] VITALS: BP 164/101
--- NOTE | 2017-09-27 04:55 | NUR ---
ED CALLED TO REPORT THAT PT HAD A 6 BEAT RUN OF V-TACH. V/S ASSESSED AND PT REPORTS HAVING SOME SMALL AMOUNT OF FLUTTER FEELING IN CHEST FOR ABOUT 10 SECONDS AND THEN IT WENT AWAY. EKG OBTAINED. WILL NOTIFY PHYSICIAN.
[2017-09-27 05:19] LABS: HEMATOCRIT 43.9 % (39.0-50.0); HEMOGLOBIN 14.4 g/dl (14.0-18.0); MEAN CELL VOLUME 88.3 fL CALC (80.0-100.0); MEAN CORPUSCULAR HGB CONC 32.8 g/L CALC (32.0-36.0); RED BLOOD COUNT 4.97 mill/uL (4.70-6.10); RED CELL DISTRI WIDTH 18.5 % (11.5-15.5)
[2017-09-27 05:22] LABS: ANION GAP 13 (6-22 (CALC)); BUN 17 mg/dL (9-20); BUN/CREATININE RATIO 27 (12-20 (CALC)); CALCULATED LDLCHOLESTEROL 93 mg/dL (62-129 (CALC)); CARBON DIOXIDE 27 mmol/l (22-30); CHLORIDE 104 mmol/l (95-108); CHOLESTEROL HDL RATIO 2.8 (<4.4 (CALC)); CREATININE 0.6 mg/dL (0.7-1.3); GFR > 60 ML/MIN (>=60 (CALC)); GFR FOR AFR.AMER. > 60 ML/MIN (>=60 (CALC)); HDL CHOLESTEROL 56 mg/dL (>=40); MAGNESIUM 1.9 mg/dL (1.6-2.3); POTASSIUM 4.9 mmol/l (3.5-5.1); SODIUM 139 mmol/l (137-146); TOTAL CHOLESTEROL 159 mg/dl (0-199); TOTAL TRIGLYCERIDES 49 mg/dl (30-149); VLDL CHOLESTROL 10 mg/dl (5-56 (CALC))
[2017-09-27 05:40] VITALS: BP 152/90
--- NOTE | 2017-09-27 06:44 | NUR ---
PHYSICIAN NOTIFIED OF 6 BEAT RUN OF V-TACH. NO NEW ORDERS AT THIS TIME.
--- NOTE | 2017-09-27 07:15 | NUR ---
REPORT RECEIVED FROM MERCED YBARRA;CONTACT PRECAUTIONS IN PLACE FOR HX OF MRSA;INTRODUCED SELF TO PT AND POC DISCUSSED;RESPIRATIONS EVEN AND UNLABORED,SHALLOW ON RA;PT DENIES ANY CURRENT PAIN OR DISCOMFORTS;TELE MONITOR IN PLACE;ENCOURAGED PT TO CALL FOR ASSISTANCE IF NEEDED;FRESH COFFEE PROVIDED PER REQUEST;BED IN THE LOWEST POSITION WITH CALL LIGHT IN REACH;WILL CONTINUE TO MONITOR
--- NOTE | 2017-09-27 07:38 | NUR ---
PER ER MONITORING PT HAD A 6 BEAT RUN OF V-TACH,PT DENIES ANY CURRENT PAIN OR DISCOMFORTS; PREVIOUSLY NOTIFIED OF V-TACH RUN THROUGH THE NIGHT;NO NEW ORDERS RECEIVED;WILL CONTINUE TO MONITOR
[2017-09-27 08:48] VITALS: BP 143/52
--- NOTE | 2017-09-27 08:50 | NUR ---
PT RESTING IN BED WATCHING TV;VS OBTAINED AND ASSESSMENT COMPLETED;CURRENT BP 143/52 HR 80;PT REPORTS NECK DISCOMFORT,WARM PACK PROVIDED;PT STATES "I HAVE CHRONIC NECK PAIN,USUALLY I TAKE MY GABAPENTIN";ALL MORNING MEDICATIONS TO BE ADMINISTERED INCLUDING GABAPENTIN;RESPIRATIONS EVEN AND UNLABORED,SHALLOW ON RA;DIMINISHED/WHEEZE LUNG SOUNDS NOTED;ABDOMEN DISTENDED/SOFT ON PALPATION AND ACTIVE IN ALL 4 QUADRANTS;WEAK PEDAL PULSES WITH +3 PITTING EDEMA NOTED,ENCOURAGED ELEVATION OF BLE;#20G TO RAC FLUSHED AND PATENT,SITE APPEARS HEALTHY;TELE MONITOR IN PLACE;SKIN INTACT; ALL SAFETY PRECAUTIONS REINFORCED;ENCOURAGED PT TO CALL FOR ASSISTANCE IF NEEDED;CALL LIGHT IN REACH;WILL CONTINUE TO MONITOR
[2017-09-27] MEDS ORDERED: SPIRONO/HCTZ PO (10:50)
[2017-09-27] MEDS ORDERED: PREDNISONE10 MG PO (10:50)
[2017-09-27] MEDS ORDERED: PROTONIX20 M1 PO (10:50)
[2017-09-27] MEDS ORDERED: COREG12.5 MG PO (10:50)
[2017-09-27] MEDS ORDERED: AMLODIPINE BESYL5 MG PO (10:50)
[2017-09-27] MEDS ORDERED: ALBUTEROL SUL0.083 % IN (10:50)
[2017-09-27] MEDS ORDERED: LEVAQUIN750 MG PO (10:50)
[2017-09-27] MEDS ORDERED: DIGOXIN0.125 MG PO (10:50)
[2017-09-27] MEDS ORDERED: DUONEB IN (11:08)
[2017-09-27 11:18] VITALS: BP 129/63
--- NOTE | 2017-09-27 11:30 | NUR ---
PT OOB RESTING IN RECLINER;PT REPORTS COUGHING AND REQUESTS COUGH MEDICATION;PT MEDICATED WITH PRN ROBITUSSIN-CODEINE 10ML PER ORDER;RESPIRATIONS EVEN AND UNLABORED ON RA WITH EXCERTIONAL SOB NOTED;IV SITE TO RAC REMAINS PATENT;TELE MONITOR IN PLACE;ENCOURAGED PT TO CALL FOR ASSISTANCE IF NEEDED;CALL LIGHT IN REACH;WILL CONTINUE TO MONITOR
[2017-09-27] MEDS ORDERED: HYDROCHLOROT25 MG PO (12:41)
[2017-09-27] MEDS ORDERED: ALDACTONE25 MG PO (12:42)
--- NOTE | 2017-09-27 15:37 | NUR ---
ALL DISCHARGE INFORMATION DISCUSSED AT THIS TIME AND PT VERBALIZES UNDERSTANDING;ENCOURAGED TO CONTINUE TAKING HOME MEDICATIONS PRESCRIBED;IV SITE REMOVED WITH CATHETER INTACT;PT DENIES ANY OTHER NEEDS;PT DECLINES A WHEELCHAIR FOR TRANSPORTATION AND AMBULATES INDEPENDENLY FOR DISCHARGE.
--- NOTE | 2017-09-27 15:43 | NUR ---
Discharge instructions given. Patient verbalizes understanding of same. Discharged in stable condition via Ambulatory to Home with *Other. All belongings sent with pt.
== END 2017-09-27 15:43 | disposition home or self-care (01) ==
LOC: ED 11:13 → ED-I 11:42 → ED 11:42 → ED-I 13:49 → ED 14:14 → MS2 14:15
PROVIDERS: Emergency Medicine; ADMIT Internal Medicine; ATTEND Internal Medicine
DX: J44.1 Chronic obstructive pulmonary disease with (acute) exacerbation (principal); J18.9 Pneumonia, unspecified organism; J44.0 Chronic obstructive pulmonary disease with (acute) lower respiratory infection; I11.0 Hypertensive heart disease with heart failure; I50.33 Acute on chronic diastolic (congestive) heart failure; I16.0 Hypertensive urgency; E78.5 Hyperlipidemia, unspecified; K21.9 Gastro-esophageal reflux disease without esophagitis; R91.1 Solitary pulmonary nodule; I47.2 Ventricular tachycardia; E66.01 Morbid (severe) obesity due to excess calories; Z68.41 Body mass index [BMI] 40.0-44.9, adult; Z79.899 Other long term (current) drug therapy; Z91.14 Patient's other noncompliance with medication regimen; Z87.891 Personal history of nicotine dependence
CPT/HCPCS: G0378; J1650

== ENCOUNTER 2018-01-22 16:38 | Inpatient (IN) | payer MEDICAID ==
[~2018-01-22] VITALS: Ht 172.7 cm; Wt 132.2 kg
[2018-01-22] VITALS (7 sets, daily range): BP systolic 102–153; BP diastolic 52–91
[~2018-01-22 16:38] MED LIST changes: +ADLT ASA LOW81 MG PO; +ALDACTONE25 MG PO; +AMLODIPINE BESYL5 MG PO; +COREG12.5 MG PO; +DUONEB IN; +HYDROCHLOROT25 MG PO; +LEVAQUIN750 MG PO; +NEURONTIN400 MG PO; +PREDNISONE10 MG PO; +PROTONIX20 M1 PO
[2018-01-22 17:20] LABS: HEMATOCRIT 45.5 % (39.0-50.0); HEMOGLOBIN 14.8 g/dl (14.0-18.0); IMMATURE GRANULOCYTES 0.4 % (0.0-5.0); MEAN CELL VOLUME 91.2 fL CALC (80.0-100.0); MEAN CORPUSCULAR HGB 29.7 pG CALC (26.0-32.0); MEAN CORPUSCULAR HGB CONC 32.5 g/L CALC (32.0-36.0); NEUT# 11.79 thou/uL (1.82-7.42); RED BLOOD COUNT 4.99 mill/uL (4.70-6.10)
[2018-01-22 17:40] LABS: ANION GAP 12 (6-22 (CALC)); BUN 13 mg/dL (9-20); BUN/CREATININE RATIO 17 (12-20 (CALC)); CARBON DIOXIDE 28 mmol/l (22-30); CHLORIDE 102 mmol/l (95-108); CREATININE 0.7 mg/dL (0.7-1.3); GFR > 60 ML/MIN (>=60 (CALC)); GFR FOR AFR.AMER. > 60 ML/MIN (>=60 (CALC)); POTASSIUM 4.4 mmol/l (3.5-5.1); SODIUM 138 mmol/l (137-146)
[2018-01-23] VITALS (29 sets, daily range): BP systolic 106–167; BP diastolic 57–95
[2018-01-23 10:18] LABS: HEMATOCRIT 47.3 % (39.0-50.0); HEMOGLOBIN 15.4 g/dl (14.0-18.0); IMMATURE GRANULOCYTES 0.5 % (0.0-5.0); MEAN CELL VOLUME 90.1 fL CALC (80.0-100.0); MEAN CORPUSCULAR HGB 29.3 pG CALC (26.0-32.0); MEAN CORPUSCULAR HGB CONC 32.6 g/L CALC (32.0-36.0); NEUT# 12.94 thou/uL (1.82-7.42); RED BLOOD COUNT 5.25 mill/uL (4.70-6.10); RED CELL DISTRI WIDTH 15.9 % (11.5-15.5)
[2018-01-23 10:39] LABS: ANION GAP 11 (6-22 (CALC)); BUN 16 mg/dL (9-20); BUN/CREATININE RATIO 27 (12-20 (CALC)); CARBON DIOXIDE 26 mmol/l (22-30); CHLORIDE 104 mmol/l (95-108); CREATININE 0.6 mg/dL (0.7-1.3); GFR > 60 ML/MIN (>=60 (CALC)); GFR FOR AFR.AMER. > 60 ML/MIN (>=60 (CALC)); SODIUM 136 mmol/l (137-146)
[2018-01-23 10:59] LABS: URINE BILIRUBIN - DIPSTICK NEGATIVE (NEGATIVE); URINE BLOOD DIPSTICK NEGATIVE (NEGATIVE); URINE COLOR YELLOW; URINE GLUCOSE - DIPSTICK NEGATIVE (NEGATIVE); URINE KETONE NEGATIVE (NEGATIVE); URINE LEUK ESTERASE NEGATIVE (Negative); URINE NITRITE - DIPSTICK NEGATIVE (Negative); URINE PROTEIN - DIPSTICK NEGATIVE (NEG-TRACE); URINE SPECIFIC GRAVITY >=1.030; URINE UROBILINOGEN - DIPSTICK 0.2 E.U./dL (0.2)
[2018-01-23 11:00] LABS: URINE CLARITY CLEAR
[2018-01-24] VITALS (22 sets, daily range): BP systolic 118–184; BP diastolic 66–111
[2018-01-24 05:32] LABS: HEMATOCRIT 47.2 % (39.0-50.0); HEMOGLOBIN 15.4 g/dl (14.0-18.0); IMMATURE GRANULOCYTES 0.7 % (0.0-5.0); MEAN CELL VOLUME 90.9 fL CALC (80.0-100.0); MEAN CORPUSCULAR HGB 29.7 pG CALC (26.0-32.0); MEAN CORPUSCULAR HGB CONC 32.6 g/L CALC (32.0-36.0); NEUT# 18.56 thou/uL (1.82-7.42); RED BLOOD COUNT 5.19 mill/uL (4.70-6.10); RED CELL DISTRI WIDTH 16.2 % (11.5-15.5)
[2018-01-24 05:39] LABS: ALBUMIN 3.9 g/dL (3.2-5.0); ALKALINE PHOSPHATASE 87 u/l (38-126); ANION GAP 15 (6-22 (CALC)); BILIRUBIN, TOTAL 0.5 mg/dL (0.0-1.4); BUN 25 mg/dL (9-20); BUN/CREATININE RATIO 28 (12-20 (CALC)); CARBON DIOXIDE 31 mmol/l (22-30); CHLORIDE 96 mmol/l (95-108); CREATININE 0.9 mg/dL (0.7-1.3); GFR > 60 ML/MIN (>=60 (CALC)); GFR FOR AFR.AMER. > 60 ML/MIN (>=60 (CALC)); MAGNESIUM 1.9 mg/dL (1.6-2.3); SGOT/AST 17 u/l (17-59); SODIUM 138 mmol/l (137-146)
[2018-01-24 05:40] LABS: POTASSIUM 3.9 mmol/l (3.5-5.1)
[2018-01-25] VITALS (15 sets, daily range): BP systolic 133–193; BP diastolic 73–111
[2018-01-25 05:48] LABS: HEMATOCRIT 48.3 % (39.0-50.0); HEMOGLOBIN 15.9 g/dl (14.0-18.0); IMMATURE GRANULOCYTES 0.7 % (0.0-5.0); MEAN CELL VOLUME 91.1 fL CALC (80.0-100.0); MEAN CORPUSCULAR HGB CONC 32.9 g/L CALC (32.0-36.0); NEUT# 18.37 thou/uL (1.82-7.42); RED BLOOD COUNT 5.3 mill/uL (4.70-6.10); RED CELL DISTRI WIDTH 16.2 % (11.5-15.5)
[2018-01-25 06:15] LABS: ALBUMIN 3.9 g/dL (3.2-5.0); ALKALINE PHOSPHATASE 79 u/l (38-126); ANION GAP 12 (6-22 (CALC)); BILIRUBIN, TOTAL 0.5 mg/dL (0.0-1.4); BUN 34 mg/dL (9-20); BUN/CREATININE RATIO 35 (12-20 (CALC)); CARBON DIOXIDE 38 mmol/l (22-30); CHLORIDE 94 mmol/l (95-108); GFR > 60 ML/MIN (>=60 (CALC)); GFR FOR AFR.AMER. > 60 ML/MIN (>=60 (CALC)); MAGNESIUM 2.1 mg/dL (1.6-2.3); POTASSIUM 3.6 mmol/l (3.5-5.1); SGOT/AST 16 u/l (17-59); SODIUM 141 mmol/l (137-146)
[2018-01-25] MEDS ORDERED: BUMETANIDE2 MG PO (10:31)
[2018-01-25] MEDS ORDERED: DOXYCYCL HYC100 MG PO (10:32)
== END 2018-01-25 17:37 | disposition home or self-care (01) | DRG 291 ==
LOC: ED 16:38 → ED-I 19:06 → ED 19:17 → ICU 19:18
PROVIDERS: Family Medicine; ADMIT Internal Medicine; ATTEND Internal Medicine Nephrology
PROC: 06HM33Z Insertion of Infusion Device into Right Femoral Vein, Percutaneous Approach (ICD-10-PCS; principal; 2018-01-22)
DX: I11.0 Hypertensive heart disease with heart failure (principal); J18.9 Pneumonia, unspecified organism; I50.31 Acute diastolic (congestive) heart failure; J44.1 Chronic obstructive pulmonary disease with (acute) exacerbation; Z68.42 Body mass index [BMI] 45.0-49.9, adult; I16.1 Hypertensive emergency; J44.0 Chronic obstructive pulmonary disease with (acute) lower respiratory infection; E78.5 Hyperlipidemia, unspecified; M19.90 Unspecified osteoarthritis, unspecified site; T46.5X6A Underdosing of other antihypertensive drugs, initial encounter; F41.8 Other specified anxiety disorders; E66.01 Morbid (severe) obesity due to excess calories; Z91.128 Patient's intentional underdosing of medication regimen for other reason; Z87.891 Personal history of nicotine dependence
CPT/HCPCS: Q9967

== ENCOUNTER 2018-03-14 12:39 | Emergency (ER) | payer OTHER ==
[~2018-03-14] VITALS: Ht 172.7 cm; Wt 127.0 kg
[~2018-03-14 12:39] MED LIST changes: +BUMETANIDE2 MG PO
[2018-03-14 13:25] LABS: HEMATOCRIT 46.9 % (39.0-50.0); HEMOGLOBIN 14.8 g/dl (14.0-18.0); IMMATURE GRANULOCYTES 0.6 % (0.0-5.0); MEAN CELL VOLUME 94.2 fL CALC (80.0-100.0); MEAN CORPUSCULAR HGB 29.7 pG CALC (26.0-32.0); MEAN CORPUSCULAR HGB CONC 31.6 g/L CALC (32.0-36.0); NEUT# 10.28 thou/uL (1.82-7.42); RED BLOOD COUNT 4.98 mill/uL (4.70-6.10); RED CELL DISTRI WIDTH 17.5 % (11.5-15.5)
[2018-03-14 13:46] LABS: ANION GAP 15 (6-22 (CALC)); BUN 15 mg/dL (9-20); BUN/CREATININE RATIO 18 (12-20 (CALC)); CARBON DIOXIDE 29 mmol/l (22-30); CHLORIDE 99 mmol/l (95-108); CREATININE 0.8 mg/dL (0.7-1.3); GFR > 60 ML/MIN (>=60 (CALC)); GFR FOR AFR.AMER. > 60 ML/MIN (>=60 (CALC)); POTASSIUM 4.5 mmol/l (3.5-5.1); SODIUM 138 mmol/l (137-146)
[2018-03-14] MEDS ORDERED: PROAIR HFA108 MCG/AC PO (15:33)
[2018-03-14] MEDS ORDERED: DOXYCYC MONO100 M1 PO (15:33)
[2018-03-14] MEDS ORDERED: PREDNISONE50 MG PO (15:33)
[2018-03-14] MEDS ORDERED: ALBUTEROL SUL0.083 % IN (15:40)
[2018-03-14 16:31] VITALS: BP 142/70
== END 2018-03-14 16:31 | disposition home or self-care (01) ==
LOC: ED 12:39
PROVIDERS: Family Medicine
DX: J44.1 Chronic obstructive pulmonary disease with (acute) exacerbation (principal); R06.02 Shortness of breath; R06.2 Wheezing; R05 Cough
CPT/HCPCS: Q9967

== ENCOUNTER 2018-04-19 19:18 | Emergency (ER) | payer OTHER ==
[~2018-04-19] VITALS: Ht 172.7 cm; Wt 127.0 kg
[~2018-04-19 19:18] MED LIST changes: +DOXYCYC MONO100 M1 PO; +PREDNISONE50 MG PO; +PROAIR HFA108 MCG/AC PO
--- NOTE | 2018-04-19 19:30 | NUR ---
BREATHING TREATMENT GIVEN. BREATHING TECH. FOR GOOD DEPOSITION TO THE LUNGS.
[2018-04-19 20:10] LABS: HEMATOCRIT 49.3 % (39.0-50.0); HEMOGLOBIN 15.6 g/dl (14.0-18.0); IMMATURE GRANULOCYTES 0.9 % (0.0-5.0); MEAN CELL VOLUME 91.6 fL CALC (80.0-100.0); MEAN CORPUSCULAR HGB CONC 31.6 g/L CALC (32.0-36.0); RED BLOOD COUNT 5.38 mill/uL (4.70-6.10); RED CELL DISTRI WIDTH 17.2 % (11.5-15.5)
[2018-04-19 20:33] LABS: ALBUMIN 3.9 g/dL (3.2-5.0); ALKALINE PHOSPHATASE 91 u/l (38-126); ANION GAP 11 (6-22 (CALC)); BILIRUBIN, TOTAL 0.6 mg/dL (0.0-1.4); BUN 15 mg/dL (9-20); BUN/CREATININE RATIO 19 (12-20 (CALC)); CARBON DIOXIDE 33 mmol/l (22-30); CHLORIDE 97 mmol/l (95-108); CREATININE 0.8 mg/dL (0.7-1.3); GFR > 60 ML/MIN (>=60 (CALC)); GFR FOR AFR.AMER. > 60 ML/MIN (>=60 (CALC)); POTASSIUM 4.5 mmol/l (3.5-5.1); SODIUM 137 mmol/l (137-146); TOTAL PROTEIN 6.6 g/dL (6.3-8.2)
[2018-04-19 20:35] LABS: D-DIMER 0.79 mg/L (0.19-0.60); INTERNATIONAL NORMALIZED RATIO 1.1 RATIO (0.7-1.3)
[2018-04-19 20:38] LABS: SGOT/AST 32 u/l (17-59)
[2018-04-19 20:45] LABS: MYOGLOBIN 73 ng/mL (0 - 121)
[2018-04-19] MEDS ORDERED: PREDNISONE50 MG PO (23:28)
[2018-04-19] MEDS ORDERED: DOXYCYCL HYC100 MG PO (23:28)
[2018-04-19] MEDS ORDERED: GABAPENTIN400 M2 PO (23:28)
[2018-04-19] MEDS ORDERED: ALBUTEROL SUL0.083 % IN (23:28)
[2018-04-19 23:48] VITALS: BP 173/97
== END 2018-04-19 23:48 | disposition home or self-care (01) ==
LOC: ED 19:18
PROVIDERS: Family Medicine
DX: J44.1 Chronic obstructive pulmonary disease with (acute) exacerbation (principal); J20.9 Acute bronchitis, unspecified; J44.0 Chronic obstructive pulmonary disease with (acute) lower respiratory infection; I10 Essential (primary) hypertension; R06.02 Shortness of breath; Z95.1 Presence of aortocoronary bypass graft
CPT/HCPCS: Q9967

== ENCOUNTER 2018-05-12 20:10 | Emergency (ER) | payer OTHER ==
[~2018-05-12] VITALS: Ht 172.7 cm; Wt 118.0 kg
[2018-05-12 21:05] LABS: ALBUMIN 3.9 g/dL (3.2-5.0); ALKALINE PHOSPHATASE 91 u/l (38-126); ANION GAP 13 (6-22 (CALC)); BILIRUBIN, TOTAL 0.7 mg/dL (0.0-1.4); BUN 15 mg/dL (9-20); BUN/CREATININE RATIO 20 (12-20 (CALC)); CARBON DIOXIDE 31 mmol/l (22-30); CHLORIDE 103 mmol/l (95-108); CREATININE 0.8 mg/dL (0.7-1.3); GFR > 60 ML/MIN (>=60 (CALC)); GFR FOR AFR.AMER. > 60 ML/MIN (>=60 (CALC)); POTASSIUM 4.4 mmol/l (3.5-5.1); SGOT/AST 29 u/l (17-59); SODIUM 142 mmol/l (137-146); TOTAL PROTEIN 6.9 g/dL (6.3-8.2)
[2018-05-12 21:12] LABS: HEMATOCRIT 45.5 % (39.0-50.0); HEMOGLOBIN 14.1 g/dl (14.0-18.0); IMMATURE GRANULOCYTES 0.7 % (0.0-5.0); MEAN CELL VOLUME 93.2 fL CALC (80.0-100.0); MEAN CORPUSCULAR HGB 28.9 pG CALC (26.0-32.0); NEUT# 11.97 thou/uL (1.82-7.42); RED BLOOD COUNT 4.88 mill/uL (4.70-6.10)
[2018-05-12 21:18] LABS: MYOGLOBIN 61 ng/mL (0 - 121)
[2018-05-12 21:40] LABS: URINE BILIRUBIN - DIPSTICK NEGATIVE (NEGATIVE); URINE BLOOD DIPSTICK NEGATIVE (NEGATIVE); URINE COLOR YELLOW; URINE GLUCOSE - DIPSTICK NEGATIVE (NEGATIVE); URINE KETONE NEGATIVE (NEGATIVE); URINE LEUK ESTERASE NEGATIVE (NEGATIVE); URINE NITRITE - DIPSTICK NEGATIVE (Negative); URINE PH 6.5 (4.5-8.0); URINE PROTEIN - DIPSTICK TRACE mg/dL (NEG-TRACE); URINE SPECIFIC GRAVITY 1.025
[2018-05-13 00:02] VITALS: BP 176/110
== END 2018-05-13 00:01 | disposition short-term general hospital (02) ==
LOC: ED 20:10
PROVIDERS: Emergency Medicine
DX: R06.03 Acute respiratory distress (principal); I47.2 Ventricular tachycardia; I50.9 Heart failure, unspecified; J18.9 Pneumonia, unspecified organism; I10 Essential (primary) hypertension; R06.02 Shortness of breath

== ENCOUNTER 2018-05-30 11:29 | Emergency (ER) | payer OTHER ==
[~2018-05-30] VITALS: Ht 172.7 cm; Wt 120.0 kg
[2018-05-30 11:43] LABS: GFR > 60 ML/MIN (>=60 (CALC)); GFR FOR AFR.AMER. > 60 ML/MIN (>=60 (CALC))
[2018-05-30] MEDS ORDERED: PROTONIX40 MG PO (11:43)
[2018-05-30 11:46] LABS: HEMATOCRIT 51.3 % (39.0-50.0); IMMATURE GRANULOCYTES 0.8 % (0.0-5.0); MEAN CELL VOLUME 90.5 fL CALC (80.0-100.0); MEAN CORPUSCULAR HGB 28.9 pG CALC (26.0-32.0); NEUT# 15.43 thou/uL (1.82-7.42); RED BLOOD COUNT 5.67 mill/uL (4.70-6.10); RED CELL DISTRI WIDTH 16.8 % (11.5-15.5)
[2018-05-30 12:13] LABS: ANION GAP 11 (6-22 (CALC)); BUN 18 mg/dL (9-20); BUN/CREATININE RATIO 23 (12-20 (CALC)); CARBON DIOXIDE 33 mmol/l (22-30); CHLORIDE 96 mmol/l (95-108); CREATININE 0.8 mg/dL (0.7-1.3); GFR > 60 ML/MIN (>=60 (CALC)); GFR FOR AFR.AMER. > 60 ML/MIN (>=60 (CALC)); POTASSIUM 4.1 mmol/l (3.5-5.1); SODIUM 137 mmol/l (137-146)
[2018-05-30 12:15] LABS: HEMOGLOBIN 16.4 g/dl (14.0-18.0)
[2018-05-30] MEDS ORDERED: ALBUTEROL SUL0.083 % IN (15:11)
[2018-05-30] MEDS ORDERED: GABAPENTIN300 M2 PO (15:11)
[2018-05-30] MEDS ORDERED: ZPAK PO (15:11)
[2018-05-30] MEDS ORDERED: AUGMENTIN875TAB PO (15:11)
[2018-05-30 15:34] VITALS: BP 182/107
== END 2018-05-30 15:34 | disposition home or self-care (01) | DRG 195 ==
LOC: ED 11:29
PROVIDERS: Family Medicine
DX: J18.9 Pneumonia, unspecified organism (principal); R07.9 Chest pain, unspecified; R06.02 Shortness of breath; M54.2 Cervicalgia; J44.9 Chronic obstructive pulmonary disease, unspecified; I48.91 Unspecified atrial fibrillation
CPT/HCPCS: Q9967

== ENCOUNTER 2018-06-14 17:38 | Observation (INO) | payer OTHER ==
[~2018-06-14] VITALS: Ht 172.7 cm; Wt 139.6 kg
[~2018-06-14 17:38] MED LIST changes: +AUGMENTIN875TAB PO; +GABAPENTIN300 M2 PO; +PROTONIX40 MG PO; +ZPAK PO
--- NOTE | 2018-06-14 17:57 | NUR ---
BY WC TO ROOM
[2018-06-14] MEDS ORDERED: ASPIRIN325 MG PO (18:22)
--- NOTE | 2018-06-14 18:27 | NUR ---
PT UNABLE TO VERIFY MEDICATIONS FROM HOME POOR HISTORIAN EXCEPT FOR HIS SUBLOXONE. SO UNABLE TO COMPLETE MED REC AT THIS TIME
[2018-06-14 18:41] LABS: HEMATOCRIT 48.5 % (39.0-50.0); IMMATURE GRANULOCYTES 0.5 % (0.0-5.0); MEAN CELL VOLUME 91.3 fL CALC (80.0-100.0); MEAN CORPUSCULAR HGB 28.2 pG CALC (26.0-32.0); MEAN CORPUSCULAR HGB CONC 30.9 g/L CALC (32.0-36.0); NEUT# 10.3 thou/uL (1.82-7.42); RED BLOOD COUNT 5.31 mill/uL (4.70-6.10); RED CELL DISTRI WIDTH 16.4 % (11.5-15.5)
[2018-06-14 18:59] LABS: ALBUMIN 3.6 g/dL (3.2-5.0); ALKALINE PHOSPHATASE 85 u/l (38-126); ANION GAP 11 (6-22 (CALC)); BILIRUBIN, TOTAL 0.7 mg/dL (0.0-1.4); BUN 20 mg/dL (9-20); BUN/CREATININE RATIO 24 (12-20 (CALC)); CARBON DIOXIDE 31 mmol/l (22-30); CHLORIDE 100 mmol/l (95-108); CREATININE 0.9 mg/dL (0.7-1.3); GFR > 60 ML/MIN (>=60 (CALC)); GFR FOR AFR.AMER. > 60 ML/MIN (>=60 (CALC)); POTASSIUM 4.5 mmol/l (3.5-5.1); SGOT/AST 27 u/l (17-59); SODIUM 137 mmol/l (137-146); TOTAL PROTEIN 6.2 g/dL (6.3-8.2)
--- NOTE | 2018-06-14 19:08 | NUR ---
TOLERATED MEDICATION RX. RESP EVEN AND NONLABORED. BEDRESTING FREE OF SIDTRESS. HAVING NEB TX AT THIS TIME
[2018-06-14] MEDS ORDERED: PREDNISONE50 MG PO (20:17)
[2018-06-14] MEDS ORDERED: NEURONTIN300 MG PO (20:17)
[2018-06-14] MEDS ORDERED: ALBUTEROL SUL0.083 % IN (20:17)
[2018-06-14] MEDS ORDERED: LASIX20 MG PO (20:17)
--- NOTE | 2018-06-14 21:17 | NUR ---
UOP 600 CC
--- NOTE | 2018-06-14 21:24 | NUR ---
PT HAS DECIDED TO STAY IN HOSPITAL.
--- NOTE | 2018-06-14 21:41 | NUR ---
Admission Note Report Given to: KELY Transported by: Wheelchair X Stretcher Transported with: X Nurse Transporter X Patent IV X O2 Fisheries Diver
--- NOTE | 2018-06-14 21:45 | NUR ---
PATIENT ARRIVED VIA STRECHER AT 2145. PATIENT IS AWAKE AND AMBULATED TO BED. RESP LABORED AND EVEN, O2 5L VIA NC. ALERT AND ORIENTED X 4. ASSESMENT COMPLETED AT THIS TIME. ORIENTED TO ROOM, CALL LIGHT, AND BED. FALL PRECAUTIONS IN PLACE. PATIENT INFORMED TO CALL WITH ANY QUESTIONS OR CONCERNS.
[2018-06-14 22:00] VITALS: BP 167/103
--- NOTE | 2018-06-14 22:45 | NUR ---
PATIENT HAS C/O SOB. RT CALLED TO GIVE PATIENT A BREATHING TREATMENT.
--- NOTE | 2018-06-15 00:46 | NUR ---
PATIENT RESTING WITH EYES CLOSED. RESP EVEN AND UNLABORED. NO S/S OF DISTRESS NOTED.
--- NOTE | 2018-06-15 03:59 | NUR ---
PATIENT RESTING WITH EYES CLOSED. RESP EVEN AND UNLABORED. NO S/S OF DISTRSS NOTED.
[2018-06-15 05:32] LABS: HEMATOCRIT 49.1 % (39.0-50.0); HEMOGLOBIN 15.7 g/dl (14.0-18.0); MEAN CELL VOLUME 90.1 fL CALC (80.0-100.0); MEAN CORPUSCULAR HGB 28.8 pG CALC (26.0-32.0); RED BLOOD COUNT 5.45 mill/uL (4.70-6.10); RED CELL DISTRI WIDTH 16.1 % (11.5-15.5)
[2018-06-15 05:45] VITALS: BP 141/85
[2018-06-15 06:00] LABS: ANION GAP 11 (6-22 (CALC)); BUN 22 mg/dL (9-20); BUN/CREATININE RATIO 35 (12-20 (CALC)); CARBON DIOXIDE 32 mmol/l (22-30); CHLORIDE 98 mmol/l (95-108); CREATININE 0.6 mg/dL (0.7-1.3); GFR > 60 ML/MIN (>=60 (CALC)); GFR FOR AFR.AMER. > 60 ML/MIN (>=60 (CALC)); POTASSIUM 4.8 mmol/l (3.5-5.1); SODIUM 136 mmol/l (137-146)
[2018-06-15 07:00] VITALS: BP 182/90
--- NOTE | 2018-06-15 07:00 | NUR ---
pt awake sitting on side of bed; no apparent distress noted; pt offers no complaints; assessment completed at this time; pt alert and oriented; denies pain; no n/v noted; resp even and unlabored; lungs diminished with faint exp wheeze noted; o2 per nc at 5L; pt denies home o2; skin color wnl; sob noted with minimal exertion; hr reg; wk pedal pulses; 3+ edema noted to ble; med/surg overflow without tele; abd soft/ distended with bs present; pt admits to bm this am; pt voiding clear dk yellow urine without complication; urinal at bedside; ua sample obtained at this time; #20 flushed and patent to rac; no redness or edema noted at site; redness/ weeping noted to ble; redness with small opening noted to right hand; plan of care/ am meds explained; contract technical writer has attempted to obtained med list; list provided without dosages per pt/ pt also states "all my meds are not listed on there"; list placed on chart; pt also informs this contract technical writer he "gets his medications from all around" because he has share of cost and has to shop for the cheapest place; pt inquiring about discharge today; severity of illness explained; call light within reach; will continue to monitor
--- NOTE | 2018-06-15 08:06 | NUR ---
[facility] called in regards to assistance with med rec list;
--- NOTE | 2018-06-15 08:07 | NUR ---
awake in bed eating breakfast; no apparent distress noted; pt offers no complaints; o2 per nc; iv intact; call light within reach; will continue to monitor
[2018-06-15 08:24] LABS: URINE BILIRUBIN - DIPSTICK NEGATIVE (NEGATIVE); URINE BLOOD DIPSTICK NEGATIVE (NEGATIVE); URINE COLOR YELLOW; URINE GLUCOSE - DIPSTICK NEGATIVE (NEGATIVE); URINE KETONE NEGATIVE (NEGATIVE); URINE LEUK ESTERASE NEGATIVE (NEGATIVE); URINE NITRITE - DIPSTICK NEGATIVE (Negative); URINE PROTEIN - DIPSTICK NEGATIVE (NEG-TRACE); URINE UROBILINOGEN - DIPSTICK 0.2 E.U./dL (0.2)
[2018-06-15] MEDS ORDERED: PROAIR HFA IN (09:36)
--- NOTE | 2018-06-15 09:39 | NUR ---
[facility] called per [facility]; list provided; entry writer attempted to verify meds with pt; discrepancies noted; pt amdmits to taking sone meds listed but has not been refilled recently (last filled 03/11/18 for one month); staff will attempt to obtained med list from [facility]
--- NOTE | 2018-06-15 09:40 | NUR ---
med list received from [facility]; meds reviewed with pt; pt admits to taking "all those meds on that list"; field underwriter attempted to clarify doxycycline and prednisone in which pt states he is still taking them; field underwriter requesting for pt to have family bring in all medication bottles; pt declines; states last time we lost all his shit; pt states "let's just wait for the doctor, pt requesting to speak with doctor about discharge before 1st; will continue to monitor
[2018-06-15] MEDS ORDERED: DIGOXIN0.125 MG PO (09:57)
[2018-06-15] MEDS ORDERED: AMLODIPINE5 MG PO (09:57)
[2018-06-15] MEDS ORDERED: PANTOPRAZOLE SO40 MG PO (10:00)
[2018-06-15] MEDS ORDERED: POTASSIUM CHLO20 ME2 PO (10:01)
[2018-06-15] MEDS ORDERED: INDERAL 40MG TA40 MG PO (10:02)
[2018-06-15] MEDS ORDERED: SPIRONO/HCTZ PO (10:03)
[2018-06-15] MEDS ORDERED: LIBRIUM25 M1 PO (10:06)
--- NOTE | 2018-06-15 10:10 | NUR ---
awake in bed; offers no complaints; no apparent distress noted; o2 per nc; iv intact; call light within reach; will continue to monitor
[2018-06-15] MEDS ORDERED: SUBOXONE1 MI1 SL (10:27)
--- NOTE | 2018-06-15 11:30 | NUR ---
Dr Slade present at bedside to assess pt and discuss plan of care; pt adamant about going home; plan of care again reinforced per MD; o2 decreased to 3L via nc as per MD order; o2 sat currently 96%; will continue to monitor
[2018-06-15 12:05] VITALS: BP 146/85
--- NOTE | 2018-06-15 12:05 | NUR ---
awake sitting on side of bed; no apparent distress noted; pt offers no complaints; appears agitated/ anxious; all medications explained and administered; medicated with Libruim as per request; o2 per nc at 3L; call light within reach; will continue to monitor
--- NOTE | 2018-06-15 14:08 | NUR ---
resting in bed with eyes closed; no apparent distress noted; o2 per nc; call light within reach; will continue to monitor
--- NOTE | 2018-06-15 15:19 | NUR ---
awake sitting on side of bed; no apparent distress noted; pt offers no complaints; vital signs obtained; medicated as per orders; will continue to monitor
[2018-06-15 15:24] VITALS: BP 160/90
--- NOTE | 2018-06-15 16:15 | NUR ---
awake in bed; offers no complaints; no apparent distress noted; o2 per nc; iv intact; no redness or edema noted at site; call light within reach; will continue to monitor
--- NOTE | 2018-06-15 17:57 | NUR ---
awake in bed; no apparent distress noted; permitted to bathroom as per request; linens changed; wash basin and clean gown set up for pt; pt requesting to walk around; pt stating "I have been having problems with this for years (referring to shortness of breath/ leg swelling) and they never keep me in the hospital but now that I have disability, I have to stay"; procedure writer ensured pt that the physician is not keeping him in the hospital because of his "disability"; severity of illness and potential decline in condition explained; pt request to speak to someone about his "share of cost"; procedure writer informed pt, bussiness offices are closed during the weekends; call light within reach
[2018-06-15 19:10] VITALS: BP 132/75
--- NOTE | 2018-06-15 19:10 | NUR ---
PATIENT WITH HOB 45 DEGREES, ALERT AND ORIENTED X4. NO SHORTNESS OF BREATH NOTED AND PATIENT DENIES SHORTNESS OF BREATH, ON 3 LITERS NASAL CANNULA, SATS 94%. BILATERAL PUPILS BRISK AND 3MM. RADIAL PULSES STRONG WITH WEAK PEDAL PULSES, HAS 2+ TIGHT PITTING BLE EDEMA. REDNESS ON BLE EXTREMITIES AND NO DRAINAGE AT THIS TIME. SOFT ABDOMEN AND ACTIVE BOWEL SOUNDS, PATIENT REPORTS HE HAS A GOOD APPETITE AND IS STILL HUNGRY, I HAVE OFFERED HIM SNACKS AND HE REPORTS HE WILL LET ME KNOW WHEN HE WANTS A SNACK, HE DENIES DIABETES. RAC 2O GAUGE IS FLSUHES PROPERLY, INTACT, NO REDNESS OR TENDERNESS NOTED, SALINE LOCKED. AFEBRILE, HEART RATE 77 BPM. PATIENT EDUCATED ON MEDICATIONS HE WILL BE RECEIVING TONIGHT. PATIENT EDUCATED ON HOW TO USE CALL LIGHT, AGREES TO USE CALL LIGHT ANYTIME HE NEEDS ASSISTANCE. PATIENT VERBALIZES NEED OF LIBRIUM TONIGHT, I HAVE EXPLAINED TO HIM THE FREQUENCY AND THAT I CAN GIVE MEDICATION WHEN IT'S DUE TONIGHT. CALL LIGHT WITHIN REACH. WILL CONTINUE TO MONITOR.
--- NOTE | 2018-06-15 20:11 | NUR ---
PATIENT'S SISTER HAS CALLED TO SPEAK TO PATIENT, PASSED PHONE TO PATIENT. PATIENT WAS SLEEPING, EASILY AROUSES, CALL LIGHT WITHIN REACH.
--- NOTE | 2018-06-15 21:05 | NUR ---
PATIENT REQUESTED TURKEY SANDWICH AND [place] ENRICO, BOTH WERE TAKEN TO HIM. NOTIFIED HIM OF WHEN HIS LIBRIUM CAN BE GIVEN AGAIN, PATIENT UNDERSTANDS AND AGREES, PATIENT SITTING UP ON SIDE OF BED. CALL LIGHT WITHIN REACH, NO OTHER NEEDS AT THIS TIME.
--- NOTE | 2018-06-15 21:30 | NUR ---
PATIENT UP TO RESTROOM, REPORTS SHORTNESS OF BREATH, REQUEST BREATHING TREATMENT, RT PAGED AND NOTIFIED. RT NOTIFIED ME HE IS WITH A PATIENT NOW AND WILL COME NEXT.
--- NOTE | 2018-06-15 21:51 | NUR ---
RT IN ROOM WITH PATIENT FOR BREATHING TREATMENT.
--- NOTE | 2018-06-15 22:00 | NUR ---
PATIENT RECEIVED BREATHING TREATMENT, NOW SLEEPING. HOB 45 DEGREES ON 3 LITERS NASAL CANNULA, SATS 92%. CALL LIGHT WITHIN REACH.
[2018-06-16 00:05] VITALS: BP 106/59
--- NOTE | 2018-06-16 00:06 | NUR ---
LIBRIUM GIVEN TO PATIENT. ON 3 LITERS NASAL CANNULA, SATS 93%-94%, NO SHORTNESS OF BREATH NOTED, LUNG SOUNDS DIMINISHED. SELF REPOSITIONS. AFEBRILE. CALL LIGHT WITHIN REACH.
--- NOTE | 2018-06-16 02:40 | NUR ---
PATIENT STANDS UP ON SIDE OF BED TO USE URINAL. PATIENT REPORTS HE BECOMES ANXIOUS, REPORTS HE HAS SOME MILD SHORTNESS OF BREATH, I CAN HEAR HE HAS SOME EXPIRATORY WHEEZING. O2 SATS ARE BOUNCING UP AND DOWN. CHEANGED THE PULSE OXIMETER TO ANOTHER FINGER, APPLIED A HOT PACK ON HIS LEFT INDEX FINGER WHICH HAS SEEMED TO HELPED TO HAVE BETTER READING OF HIS 02 SATS. RT NOTIFIED FOR BREATHING TREATMENT.
--- NOTE | 2018-06-16 02:49 | NUR ---
RT IN ROOM WITH PATIENT FOR BREATHING TREATMENT, CALL LIGHT WITHIN REACH. WILL CONTINUE TO MOITOR.
--- NOTE | 2018-06-16 03:20 | NUR ---
PATIENT'S 02 SATS 88%-91% AFTER BREATHING TREATMENT. PATIENT WITH HOB 45 DEGREES. TURNED OXYGEN TO 4 LITERS ON NASAL CANNULA. EDUCATED PATIENT ON FLUID OVERLOAD AND HOW WE ARE MEDICATING HIM TO TAKE EXCESS FLUIDS OFF AND HOW IT CAN CONTRIBUTE TO HIS SHORTNESS OF BREATH, ALSO EDUCTED ON TRYING TO CONTROL HIS INTAKE OF FLUIDS SINCE HE ASKED FOR TWO [place] ENRICO'S AND HAD TWO ICECREAMS THROUGH THE NIGHT, PATIENT UNDERSTANDS AND AGREES.
--- NOTE | 2018-06-16 04:25 | NUR ---
PATIENT WITH HOB 45 DEGREES, SLEEPING. NOW ON 4 LITERS NASAL CANNULA, SATS BETWEEN 90%-93%. NO REPORTS OF PAIN. NO SHORTNESS OF BREATH NOTED. RAC IV INTACT. URINAL AT BEDSIDE. AFEBRILE. LUNG SOUNDS ARE DIMINISHED. NO NEEDS AT THIS TIME. CALL LIGHT WITHIN REACH.
[2018-06-16 04:30] VITALS: BP 137/71
--- NOTE | 2018-06-16 06:15 | NUR ---
PATIENT SLEEPING, ON 4 LITERS NASAL CANNULA, SATS 92%, NO NEEDS AT THIS TIME, NO ACUTE DISTRESS SHOWN. CALL LIGHT WITHIN REACH.
--- NOTE | 2018-06-16 07:10 | NUR ---
pt awake up to chair per self; no apparent distress noted; pt offers no complaints; assessment completed at this time; pt alert and oriented; denies pain; no n/v noted; pt denies resp distress; resp even and unlabored; lungs diminished throughout; skin color wnl; o2 per nc at 4L; clean room assembler dry cough noted; hr reg; weak pedal pulses; 2+ edema noted to ble with discoloration/ redness noted to ble; no weeping noted at current; abd soft with bs present; no bm noted per teletypewriter installer; no urine to inspect at this time; urinal at bedside; #20 flushed and patent to rac; no redness or edema noted at site; pt noted to have scratched rle/lat ankle with bleeding noted; bandaid to be applied; plan of care/ am meds explained; pt states "he feels he is withdrawing from his suboxone"; teletypewriter installer informed pt, suboxone will need to be brought in from home if MD approves him to use home meds; pt admits sister in out of town for a "court case" and can not bring in meds; pt requesting discharge; teletypewriter installer has informed pt he will have to wait for MD; pt states he doesn't have any breathing meds at home but he is "not here for my breathing but the swelling in my legs"; pt reassured; will continue to monitor
[2018-06-16 07:32] VITALS: BP 165/98
--- NOTE | 2018-06-16 08:05 | NUR ---
awake in chair; offers no complaints; pulse ox probe has been changed 2 times this am; o2 sat currently 94-96%; hr 78; pt offers no complaints; pt placed on room air at this time; will monitor very closely; no resp distress noted; iv intact; call light within reach; pt informed to notify this scenario writer immed of any resp distress/ shortness of breath; will continue to monitor
--- NOTE | 2018-06-16 08:49 | NUR ---
0843- pt off o2 since 804; o2 sat noted at 93% with portable pulse ox monitor; pt up to ambulate assisted per this music writer 0847- pt ambulating within halls outside of ICU; this music writer remains with pt; o2 sat noted down to 84% and apparent shortness of breath noted; pt states his shortness of breath is related to him being in bed 2 days; music writer insist pt return to room/pt agree; hr 98 0848-o2 sat noted at 85%-88% ra; o2 reapplied at 3L 0849- o2 sat noted at 92% with deep breathing; will continue to monitor
--- NOTE | 2018-06-16 10:01 | NUR ---
resting in bed with eyes closed; no apparent distress noted; resp even and unlabored; o2 sat at 94%; o2 titrated to 2L nc; iv intact; call light within reach; will continue to monitor
--- NOTE | 2018-06-16 11:10 | NUR ---
Dr Slade present at bedside to assess pt and discuss plan of care; pt again, very adamant about being discharged; o2 walking trial/ o2 qualification explained to MD in great detail; pt desats with exertion/MD informed; MD also informed pt states he is withdrawing from Suboxone; call light within reach; will continue to monitor
[2018-06-16] MEDS ORDERED: COREG12.5 MG PO (11:17)
[2018-06-16] MEDS ORDERED: ALBUTEROL SUL0.083 % IN (11:17)
[2018-06-16] MEDS ORDERED: LASIX 40 MG TAB40 MG PO (11:17)
[2018-06-16] MEDS ORDERED: PREDNISONE10 MG PO (11:17)
[2018-06-16] MEDS ORDERED: POTASSIUM CHLO20 ME2 PO (11:17)
[2018-06-16] MEDS ORDERED: ADLT ASA LOW81 MG PO (11:17)
[2018-06-16] MEDS ORDERED: ZPAK PO (11:17)
[2018-06-16] MEDS ORDERED: LOSARTAN POT50 MG PO (11:17)
[2018-06-16 12:05] VITALS: BP 185/84
--- NOTE | 2018-06-16 12:05 | NUR ---
awake in chair; pt questioning discharge; service writer informed pt, discharge orders have been placed but staff is waiting to speak with child welfare caseworker in regards for home o2; pt very agitated/anxious; MD has been informed of pt complaints of withdrawing from Suboxone; pt states "I'm about to get real ugly"; service writer informed pt, staff will not tolerate verbal abuse nor threats; pt apologizes; will continue to monitor
--- NOTE | 2018-06-16 12:44 | NUR ---
call placed to Danette Figueroa; brief writer explained Dr Slade wishes for pt to be discharged with home o2; no insurance listed; per Carolina, pt will have to pay out of pocket; Carolina will call oxygen companies to check pricing and follow up with this brief writer
--- NOTE | 2018-06-16 12:45 | NUR ---
call placed to Esperanza Whaley NP per this telegraphic typewriter installer; explained oxygen situation vs no insurance to FEED MIXER HELPER; FEED MIXER HELPER also informed pt states he is withdrawing from Suboxone; pt appears anxious/agitated; Libruim order to be placed; FEED MIXER HELPER recommeds waiting for social work case manager to arrive/ social work case manager to search for valid insurance d/t pt statement "share of cost"; will continue to monitor
--- NOTE | 2018-06-16 12:51 | NUR ---
DIPRIVAN TITRATED DOWN TO 60 MCG/KG/MIN DUE TO HYPOTENSION.
--- NOTE | 2018-06-16 13:06 | NUR ---
medicated with Libruim as per orders; pt inquiring if someone brought in his Suboxone from he, could he have it; customs entry writer has explained to pt numerous times, medication must first be ordered per MD and then verified per pharmacy; explained medication needs to be in a labeled bottle and [facility] pharmacy closes at 1500; will continue to monitor
--- NOTE | 2018-06-16 13:40 | NUR ---
visitors x2 at bedside; Suboxone obtained from sister; 2 tablets noted in bottle and verified in front of pt's sister; medication to be sent to pharmacy for verification; order to use home meds obtained from YANELIS Whaley; will continue to monitor
--- NOTE | 2018-06-16 14:00 | NUR ---
awake in chair; no apparent distress noted; o2 per nc al 2L; sat 93-96%; pt very anxious/ agitated; case manage S Carolina present at bedside to discuss oxygen; will continue to monitor
--- NOTE | 2018-06-16 15:09 | NUR ---
call placed to Dr Slade per screenplay writer; screenplay writer has explained to MD, pt is very adamant about being discharged; CM unable to verify insurance (pt does not have any insurance cards on person); pt does state he receives "disability"; informs screenplay writer pt may be discharged
--- NOTE | 2018-06-16 15:21 | NUR ---
principal technical writer present at bedside; principal technical writer has spoken with pt in great detail on the need for home o2; this principal technical writer has requested for pt to stay in hospital until tomorrow when additional resources are available to assist obtaining o2 for home; pt refusing to stay and insisting to be discharged without oxygen; pt states "as long as I have an order for my breathing treatments I'm good"; principal technical writer has explained to pt that he needs to call 911 and return to ER immediately for any signs of resp distress (shortness of breath, air hunger, discoloration to hands/feet) and pt agree; principal technical writer also explained, pt the need to follow up with primary care physician early tomorrow morning and pt agree;
--- NOTE | 2018-06-16 15:26 | NUR ---
Esperanza Whaley NP present at bedside to speak with pt in regards to PT request to be discharged home without home o2; pt agree to return to hospital if any resp distress or shortness of breath occurs; deterioration in status explained in great detail per TAILINGS MAN; CORPORATE PLANNER has also explained, pt is not to increase activity or be around fumes/ smoke; call [facility] within reach; will continue to monitor
[2018-06-16 16:00] VITALS: BP 154/71
--- NOTE | 2018-06-16 16:00 | NUR ---
In to speak with patient regarding staffing concerns discharge and O2 saturation dropping with exertion, requested that patient wait for discharge until tomorrow when additional resources are here to assit with finances d/t pt being self-pay. Pt insist on continuing with discharge and states being here is making his anxiety worse. Pt states he will be fine with nebulizer treatments and knows to call 911 if his condition worsens. Pt also states he has a pulse ox monitor at home. Explained to patient there is a difference between oxygen and nebulizer treatments, he states he knows the nebulizer treatements are to "open up his lungs" Explained to patient that low oxygen levels can cause tissue/heart/brain damage, pt voices understanding. States he already has plans to follow up with his primary in [place] tomorrow and he has been told for a while now he needs oxygen.
--- NOTE | 2018-06-16 16:25 | NUR ---
discharge instructions reviewed with pt in detail; pt voices understanding to instructions and changes in medications; pt strongly encouraged to monitor/ keep log of pulse ox, blood pressure and heart rate to preent to MD on follow up; pt admits to having a pulse oximetry monitor and bp monitor at home; again, feature writer explained to pt s/s of hypoxia and to return to ER immed via 911; pt agree;
--- NOTE | 2018-06-16 16:33 | NUR ---
Discharge instructions given. Patient verbalizes understanding of same. Discharged in stable condition via Wheelchair to Home with *Other. All belongings sent with pt.
--- NOTE | 2018-06-16 16:33 | NUR ---
#3 half tablets of home medication Suboxone returned to pt;
== END 2018-06-16 16:33 | disposition home or self-care (01) ==
LOC: ED 17:38 → ED-I 19:50 → ED 20:33 → ICU 20:34
PROVIDERS: Emergency Medicine; ADMIT Internal Medicine; ATTEND Internal Medicine
DX: I11.0 Hypertensive heart disease with heart failure (principal); I50.33 Acute on chronic diastolic (congestive) heart failure; I16.0 Hypertensive urgency; J44.1 Chronic obstructive pulmonary disease with (acute) exacerbation; I48.91 Unspecified atrial fibrillation; M19.90 Unspecified osteoarthritis, unspecified site; E78.5 Hyperlipidemia, unspecified; K21.9 Gastro-esophageal reflux disease without esophagitis; F11.20 Opioid dependence, uncomplicated; I27.20 Pulmonary hypertension, unspecified; R09.02 Hypoxemia; T50.1X6A Underdosing of loop [high-ceiling] diuretics, initial encounter; Z91.128 Patient's intentional underdosing of medication regimen for other reason; Z87.891 Personal history of nicotine dependence; Z91.19 Patient's noncompliance with other medical treatment and regimen
CPT/HCPCS: J1650